=== PATIENT | female | born 1965 | race Caucasian/White ===

== ENCOUNTER 2017-02-02 10:23 | Emergency (ER) | payer OTHER, SELFPAY ==
[~2017-02-02] VITALS: Ht 172.7 cm; Wt 61.8 kg
[2017-02-02 11:39] LABS: BLOOD UREA NITROGEN 24 mg/dL (7-18)
[2017-02-02 12:33] VITALS: BP 125/78
== END 2017-02-02 12:34 | disposition home or self-care (01) ==
LOC: ED 11:20
DX: N95.0 Postmenopausal bleeding (principal); N93.8 Other specified abnormal uterine and vaginal bleeding; Z30.432 Encounter for removal of intrauterine contraceptive device
CPT/HCPCS: 36415; 80048; 81003; 82040; 85025; 99284

== ENCOUNTER → 2017-02-23 | Outpatient (CLI) | payer OTHER | END | disposition home or self-care (01) | LOC: CFH 07:23 | PROVIDERS: ATTEND Orthopaedic Surgery | DX: M25.522 Pain in left elbow (principal) ==

== ENCOUNTER 2017-04-05 14:02 | Day surgery (SDC) | payer OTHER ==
[~2017-04-05] VITALS: Ht 172.7 cm; Wt 59.9 kg
[~2017-04-05 14:02] MED LIST: NONE PER PT
[2017-04-05 14:21] VITALS: BP 131/79
[2017-04-05] MEDS ORDERED: BUPIVACAINE/PF-EPI 0.5% 1:200K ONE (14:21)
[2017-04-05] MEDS ORDERED: BUPIVACAINE/PF 0.25% ONE (14:21)
[2017-04-05] MEDS ORDERED: LACTATED RINGERS 1,000 ML IV SCH (14:23)
[2017-04-05 15:04] LABS: HCG UR OBC PASS
[2017-04-05] MEDS ORDERED: SCOPOLAMINE PATCH, 1.5MG PATCH.TD72 TD ONE (15:13)
[2017-04-05] MEDS ORDERED: MIDAZOLAM 1 MG/ML, 2ML ONE (15:28)
[2017-04-05] MEDS ORDERED: FENTANYL PF 100 MCG/2ML ONE ×3 (15:29→18:24)
[2017-04-05] MEDS ORDERED: PROPOFOL 10 MG/ML, 20ML ONE (16:01)
[2017-04-05] MEDS ORDERED: SUCCINYLCHOLINE 20 MG/ML, 10ML ONE (16:01)
[2017-04-05] MEDS ORDERED: ONDANSETRON 2MG/ML, 2ML ONE ×2 (16:01→18:24)
[2017-04-05] MEDS ORDERED: CEFAZOLIN 1,000 MG ONE (16:01)
[2017-04-05] MEDS ORDERED: DEXAMETHASONE 4 MG/ML, 5ML ONE (16:01)
[2017-04-05] MEDS ORDERED: LABETALOL 5MG/ML 40ML VIAL ONE (16:01)
[2017-04-05] MEDS ORDERED: KETOROLAC 30 MG/1 ML ONE (16:01)
[2017-04-05] MEDS ORDERED: PROPOFOL 10 MG/ML, 50ML ONE (16:01)
[2017-04-05] MEDS ORDERED: EPHEDRINE 50 MG/ML, 1ML ONE (16:01)
[2017-04-05] MEDS ORDERED: HYDROmorphone 2 MG/ML, 1ML ONE (16:50)
[2017-04-05] MEDS ORDERED: ALBUTEROL/IPRATROPIUM 2.5MG/0.5MG, 3 ML NPPB PRN (17:00)
[2017-04-05] MEDS ORDERED: MIDAZOLAM 1 MG/ML, 2ML IV PRN (17:00)
[2017-04-05] MEDS ORDERED: PROMETHAZINE 25 MG/ML, 1ML IV PRN (17:00)
[2017-04-05] MEDS ORDERED: OXYcodone 5 MG/5 ML ORAL.SOL UDC PO PRN (17:00)
[2017-04-05] MEDS ORDERED: ACETAMINOPHEN 325 MG TABLET PO PRN (17:00)
[2017-04-05] MEDS ORDERED: HYDROmorphone 1 MG/ML, 1ML IV PRN (17:00)
[2017-04-05] MEDS ORDERED: ONDANSETRON 2MG/ML, 2ML IVPush PRN (17:00)
[2017-04-05] MEDS ORDERED: hydrALAzine 20 MG/ML, 1ML IV PRN (17:00)
[2017-04-05] MEDS ORDERED: FENTANYL PF 100 MCG/2ML IV PRN (17:00)
[2017-04-05] MEDS ORDERED: MEPERIDINE/PF 25MG/0.5ML IVPush PRN (17:00)
[2017-04-05] MEDS ORDERED: LABETALOL 5MG/ML, 20ML IV PRN (17:00)
[2017-04-05] MEDS ORDERED: BUPIVACAINE/PF 0.5% ONE (18:25)
[2017-04-05] MEDS ORDERED: cloniDINE/PF 100 MCG/ML, 10 ML ONE (18:26)
[2017-04-05] MEDS ORDERED: ACETAMINOPHEN 325 MG/10.15 ML UDC ONE (18:51)
== END 2017-04-05 20:15 ==
LOC: STAR 14:02 → OR 20:15
PROVIDERS: ATTEND Orthopaedic Surgery
DX: M25.822 Other specified joint disorders, left elbow (principal); M65.822 Other synovitis and tenosynovitis, left upper arm; Z72.89 Other problems related to lifestyle
CPT/HCPCS: 29836; 81025; 87070; 87075; 87102; 87116; 87205; 87206; 88305; 89051; 89060; J0330; J0690; J0735; J1100; J1170; J1885; J2250; J2405; J2704; J3010; J3490

== ENCOUNTER → 2018-03-26 | Outpatient (CLI) | payer OTHER | END | disposition home or self-care (01) | LOC: RAD 10:12 | PROVIDERS: ATTEND Physician Assistant | DX: M25.461 Effusion, right knee (principal) ==